=== PATIENT | female | born 1980 | race Caucasian/White ===

== ENCOUNTER → 2016-08-08 | Outpatient (CLI) | payer OTHER ==
[2016-08-08 13:52] LABS: RED BLOOD COUNT 3.56 M/UL (4.00-5.10); WHITE BLOOD COUNT 8.9 K/UL (4.5-11.0)
== END ==
LOC: GENOP 13:07
PROVIDERS: Obstetrics & Gynecology
DX: Z01.812 Encounter for preprocedural laboratory examination (principal); Z88.1 Allergy status to other antibiotic agents; Z88.8 Allergy status to other drugs, medicaments and biological substances
CPT/HCPCS: 36415; 81001; 85025; J7030; J7120

== ENCOUNTER 2016-08-09 06:29 | Inpatient (IN) | payer OTHER ==
[~2016-08-09] VITALS: Ht 162.6 cm; Wt 102.5 kg
[2016-08-09 13:04] LABS: HEMOGLOBIN 8.8 gm/dl (12.3-15.3)
[2016-08-09 14:55] LABS: HEMOGLOBIN 6.3 gm/dl (12.3-15.3)
[2016-08-09 18:03] LABS: RED BLOOD COUNT 3.29 M/UL (4.00-5.10)
[2016-08-09 18:06] LABS: WHITE BLOOD COUNT 23.7 K/UL (4.5-11.0)
[2016-08-10 03:17] LABS: HEMOGLOBIN 7.1 gm/dl (12.3-15.3)
[2016-08-10 18:53] LABS: RED BLOOD COUNT 1.94 M/UL (4.00-5.10); WHITE BLOOD COUNT 16.5 K/UL (4.5-11.0)
[2016-08-11 04:38] LABS: HEMOGLOBIN 4.7 gm/dl (12.3-15.3)
[2016-08-11 14:22] LABS: HEMOGLOBIN 7.1 gm/dl (12.3-15.3)
[2016-08-12 04:37] LABS: HEMOGLOBIN 6.2 gm/dl (12.3-15.3)
== END 2016-08-12 13:46 | disposition home health service (06) | DRG 765 ==
LOC: OB 06:29
PROVIDERS: ADMIT Obstetrics & Gynecology
PROC: 0W3R7ZZ Control Bleeding in Genitourinary Tract, Via Natural or Artificial Opening (ICD-10-PCS; 2016-08-09)
PROC: 30233N1 Transfusion of Nonautologous Red Blood Cells into Peripheral Vein, Percutaneous Approach (ICD-10-PCS; 2016-08-09)
PROC: 10D00Z1 Extraction of Products of Conception, Low, Open Approach (ICD-10-PCS; principal; 2016-08-09 08:45)
PROC: 3E0234Z Introduction of Serum, Toxoid and Vaccine into Muscle, Percutaneous Approach (ICD-10-PCS; 2016-08-11)
DX: O24.420 Gestational diabetes mellitus in childbirth, diet controlled (principal); O71.03 Rupture of uterus before onset of labor, third trimester; O72.1 Other immediate postpartum hemorrhage; O34.211 Maternal care for low transverse scar from previous cesarean delivery; N85.8 Other specified noninflammatory disorders of uterus; O69.89X0 Labor and delivery complicated by other cord complications, not applicable or unspecified; O67.8 Other intrapartum hemorrhage; Z3A.37 37 weeks gestation of pregnancy; Z37.0 Single live birth; N32.89 Other specified disorders of bladder; Z88.8 Allergy status to other drugs, medicaments and biological substances; Z82.49 Family history of ischemic heart disease and other diseases of the circulatory system; Z80.1 Family history of malignant neoplasm of trachea, bronchus and lung; Z23 Encounter for immunization
CPT/HCPCS: 36415; 36430; 82800; 82962; 85014; 85018; 85025; 85384; 85461; 86850; 86900; 86901; 86920; 90715; C9113; J0690; J2274; J2370; J2405; J2590; J2765; J2795; J3010; J7030; J7040; J7120; P9016

== ENCOUNTER 2016-08-16 14:08 | Observation (INO) | payer OTHER ==
[2016-08-16 15:50] LABS: HEMOGLOBIN 7.8 gm/dl (12.3-15.3); RED BLOOD COUNT 2.64 M/UL (4.00-5.10); WHITE BLOOD COUNT 6.1 K/UL (4.5-11.0)
[2016-08-17 05:51] LABS: HEMOGLOBIN 8.9 gm/dl (12.3-15.3)
== END 2016-08-17 10:15 | disposition home or self-care (01) ==
LOC: GENOP 14:08 → OB 14:09
PROVIDERS: Obstetrics & Gynecology; ADMIT Obstetrics & Gynecology
DX: O90.81 Anemia of the puerperium (principal); O72.1 Other immediate postpartum hemorrhage; Z79.891 Long term (current) use of opiate analgesic; Z79.899 Other long term (current) drug therapy; Z88.1 Allergy status to other antibiotic agents; Z88.8 Allergy status to other drugs, medicaments and biological substances
CPT/HCPCS: 36430; 81001; 82728; 83540; 83550; 85014; 85018; 85025; 86850; 86900; 86901; 86920; 93005; 96360; 96365; G0378; J7030; J7040; P9016; Q0163

== ENCOUNTER 2020-08-04 10:59 | Emergency (ER) | payer OTHER ==
[2020-08-04 12:22] LABS: HEMOGLOBIN 12.6 gm/dl (12.3-15.3); RED BLOOD COUNT 4.07 M/UL (4.00-5.10); WHITE BLOOD COUNT 6.6 K/UL (4.5-11.0)
[2020-08-04 12:57] LABS: BUN/CREATININE RATIO 12 (0-10)
[2020-08-04] MEDS ORDERED: MECLIZINE HCL25 MG PO (15:56)
== END 2020-08-04 16:10 | disposition home or self-care (01) ==
LOC: ER1 10:59
PROVIDERS: Emergency Medicine
DX: R42 Dizziness and giddiness (principal); R55 Syncope and collapse; R51.9 Headache, unspecified; Z20.822 Contact with and (suspected) exposure to COVID-19; R79.1 Abnormal coagulation profile; Z79.899 Other long term (current) drug therapy; Z88.1 Allergy status to other antibiotic agents
CPT/HCPCS: 0240U; 70450; 71045; 80053; 81001; 82550; 82553; 83874; 84484; 84703; 85025; 85379; 85610; 85730; 93005; 99284; Q9967